=== PATIENT | male | born 1960 | race Caucasian/White ===

== ENCOUNTER 2016-09-16 13:06 | Emergency (ER) | payer BC ==
[~2016-09-16] VITALS: Ht 175.3 cm; Wt 99.8 kg
[~2016-09-16 13:06] MED LIST: ALPR1T PO; ALPR2TAB2 PO; FLUO20CA25 PO; NF-SYM625; OLAN1CAP9 PO; OLN5T PO; PRX20T PO
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
[2016-09-16 13:39] LABS: BASOPHILS % (AUTO) 0 % (0-10); EOSINOPHILS # (AUTO) 0.1 10^3/uL (0.0-0.3); EOSINOPHILS % (AUTO) 1 % (0-10); LYMPHOCYTES # (AUTO) 2.6 X 10^3 (1.0-4.0); LYMPHOCYTES % (AUTO) 17 % (12-44); MEAN CORPUSCULAR HEMOGLOBIN 31 PG (25-34); MEAN CORPUSCULAR HGB CONC 34 G/DL (32-36); MEAN CORPUSCULAR VOLUME 89 FL (80-99); MEAN PLATELET VOLUME 10.2 FL (7.4-10.4); MONOCYTES # (AUTO) 0.8 X 10^3 (0.0-1.0); MONOCYTES % (AUTO) 5 % (0-12); NEUTROPHILS % (AUTO) 77 % (42-75); PLATELET COUNT 409 10^3/uL (130-400); RED BLOOD COUNT 5.69 10^6/uL (4.35-5.85); RED CELL DISTRIBUTION WIDTH 13.6 % (10.0-14.5); WHITE BLOOD COUNT 15.6 10^3/uL (4.3-11.0)
[2016-09-16 13:56] LABS: BAND NEUTROPHILS 3 %; BASOPHILS % (MANUAL) 0 %; EOSINOPHILS % (MANUAL) 0 %; LYMPHOCYTES % (MANUAL) 15 %; NEUTROPHILS % (MANUAL) 76 %
[2016-09-16 13:57] LABS: ACETAMINOPHEN < 10 UG/ML (10-30); ALANINE AMINOTRANSFERASE 28 U/L (0-55); ALBUMIN 4.6 G/DL (3.2-4.5); ALCOHOL 34 MG/DL (<10); ANION GAP 12 MMOL/L (5-14); ASPARTATE AMINO TRANSFERASE 23 U/L (5-34); BILIRUBIN,TOTAL 0.3 MG/DL (0.1-1.0); BLOOD UREA NITROGEN 15 MG/DL (7-18); BUN/CREATININE RATIO 12; CALCIUM 9.6 MG/DL (8.5-10.1); CARBON DIOXIDE 22 MMOL/L (21-32); CHLORIDE 104 MMOL/L (98-107); CREATININE SERUM 1.22 MG/DL (0.60-1.30); GFR ESTIMATED > 60; GLUCOSE 118 MG/DL (70-105); POTASSIUM 3.3 MMOL/L (3.6-5.0); SODIUM 138 MMOL/L (135-145); TOTAL PROTEIN 7.7 G/DL (6.4-8.2)
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
[2016-09-16 16:04] LABS: BILIRUBIN,URINE NEGATIVE (NEGATIVE); KETONES,URINE 2+ (NEGATIVE); LEUKOCYTE ESTERASE ,URINE NEGATIVE (NEGATIVE); NITRITE,URINE NEGATIVE (NEGATIVE); PH,URINE 5 (5-9); PROTEIN,URINE 1+ (NEGATIVE); UROBILINOGEN,URINE NORMAL (NORMAL)
[2016-09-16 17:35] VITALS: BP 128/94
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
== END 2016-09-16 17:35 | disposition home or self-care (01) ==
LOC: EDUNIT# 13:06 → ER 13:09
DX: S39.92XA Unspecified injury of lower back, initial encounter (principal); S29.9XXA Unspecified injury of thorax, initial encounter; F33.9 Major depressive disorder, recurrent, unspecified; M47.812 Spondylosis without myelopathy or radiculopathy, cervical region; Z98.1 Arthrodesis status; Y35.893A Legal intervention involving other specified means, suspect injured, initial encounter; Y92.531 Health care provider office as the place of occurrence of the external cause; Y99.8 Other external cause status
CPT/HCPCS: 36415; 71010; 72125; 72128; 72131; 80053; 80306; 80320; 80329; 81000; 85007; 85025; 85027

== ENCOUNTER → 2016-10-10 | Outpatient (CLI) | payer BC ==
--- NOTE | 2016-10-10 17:33 | Diagnostic Imaging Report ---
PROCEDURE: MRI lumbar spine. TECHNIQUE: Multiplanar, multisequence MRI of the lumbar spine was performed without contrast. INDICATION: Back pain. FINDINGS: There is evidence of laminectomy around L5 level with posterior fusion hardware resulting in susceptibility artifact seen at L4 through S1 levels. Also suggestion of disc cage at L4/L5 and L5/S1 disc levels seen. The alignment of the posterior spinal line is satisfactory. There is disc desiccation at multiple levels. Reactive type II Modic changes around endplates in the mid lumbar spine seen. No suspicious focal marrow lesion is identified. The cauda equina and conus medullaris appear grossly unremarkable. T12/L1: There is diffuse disc bulge and bilateral mild facet hypertrophy. There is no central canal or lateral recess stenosis. No foraminal narrowing. L1/L2: There is mild disc herniation. There is no spinal canal or lateral recess stenosis. No foraminal narrowing. L2/L3: There is a diffuse disc bulge resulting in mild central canal stenosis reducing the AP dimension of the canal to 9.5 mm. There is moderate facet arthropathy. The lateral recess on the left demonstrates moderate to severe stenosis and there is mild lateral recess stenosis on the right side. There is bilateral foraminal stenosis moderate on the left and mild to moderate on the right side. L3/L4: There is a diffuse disc bulge with associated moderate central canal stenosis reducing the AP dimension of the canal to 7.7 mm. Bilateral moderate facet arthropathy is also seen with moderate to severe lateral recess stenosis, worse on the right side. There is bilateral foraminal stenosis of moderate to severe degree. L4/L5: Postoperative level demonstrates no remaining disc or spur with suggestion of prior discectomy and disc cage at this level. No obvious osseous bridging seen. This can be better evaluated with CT, however. The facet joints demonstrate also question of osseous bridging and fusion. There is no central canal or lateral recess stenosis. There is mild foraminal stenosis only seen on the left side. L5/S1: There is possible discectomy performed at this level with no remaining disc herniation or osteophyte. There is facet hypertrophy bilaterally. No central canal stenosis. There is mild bilateral lateral recess stenosis. The foramina demonstrate mild narrowing bilaterally. IMPRESSION: Postsurgical changes at L4 through S1 levels. There is central canal, lateral recess and neural foraminal stenosis at L3/L4 level. Other findings described above. Dictated by: Dictated on workstation # [id number]
--- NOTE | 2016-10-10 17:35 | Diagnostic Imaging Report ---
PROCEDURE: MR imaging cervical spine without contrast. TECHNIQUE: Multiplanar, multisequence MR imaging of the cervical spine was performed without contrast. INDICATION: Back pain. Neck pain. FINDINGS: There is straightening of the cervical spine curvature which might relate to muscle spasm. The alignment of the posterior spinal line is satisfactory. The vertebral body heights are preserved. There is no significant disc height loss. There is disc desiccation at all levels. There is no suspicious marrow lesion identified. Mild marrow edema probably reactive. Degenerative disc changes seen around the C6/7 disc and to a lesser extent around C5/6. The foramen magnum and upper cervical canal are widely patent. The spinal cord is normal in caliber, contour and signal. C2/3: No disc herniation, no spinal canal or foraminal stenosis. C3/4: No disc herniation. There is no spinal canal stenosis. There is mild uncovertebral and facet hypertrophy with bilateral mild foraminal stenosis. C4/5: There is a mild disc spur complex with no associated spinal canal stenosis. There is uncovertebral joint facet arthropathy resulting in bilateral severe foraminal stenosis. C5/6: There is a prominent disc spur complex without significant spinal canal stenosis. There is bilateral severe neural foraminal stenosis. C6-7: There is prominent disc spur complex with no significant spinal canal stenosis. There is mild foraminal stenosis on the left and no significant foraminal stenosis on the right side. IMPRESSION: Prominent mid cervical spine disc, uncovertebral and facet degenerative changes. There is no high-grade spinal canal stenosis at any level. There is bilateral severe foraminal stenosis at C4/5 and C5/6 levels. Dictated by: Dictated on workstation # [id number]
== END ==
LOC: RAD 14:56
PROVIDERS: ATTEND Orthopaedic Surgery Orthopaedic Surgery of the Spine
DX: M54.2 Cervicalgia (principal); M54.5 Low back pain
CPT/HCPCS: 72141; 72148

== ENCOUNTER → 2017-03-06 | Outpatient (CLI) | payer BC ==
--- NOTE | 2017-03-06 17:52 | Diagnostic Imaging Report ---
PROCEDURE: MRI left joint lower extremity without contrast. TECHNIQUE: Multiplanar, multisequence non contrast-enhanced MRI of the left lower extremity was accomplished. INDICATION: Chronic left knee pain. FINDINGS: There is a small suprapatellar effusion. The proximal patellar tendon demonstrates increased signal suggestive of a partial tear or tendinosis. There is thickening of the anterior tissues with intermediate signal on proton density and low signal on T2-weighted images probably related to hemorrhagic or fibrotic material within the superficial infrapatellar bursa mildly distending it. There is poor definition of the distal ACL fibers and thickening seen suggestive of an old injury. There is no bone marrow pattern of contusion to suggest an acute ACL tear. The PCL is intact. There is a complex tear involving the posterior horn and body of the medial meniscus. There is extrusion of the body of the medial meniscus. The lateral meniscus demonstrates no tear. The MCL is slightly buckled by the extruded medial meniscus with no tear. The lateral collateral ligament complex appear grossly unremarkable. Increased signal in the distal popliteus tendon may relate to old injury or tendinosis. The cartilage in the medial compartment demonstrates severe thinning and near complete loss. The patellofemoral compartment demonstrates also significant cartilage loss, more than 75% thinning, worse in the medial facet of the patella. The lateral compartment demonstrates relatively preserved cartilage. Tricompartment osteophyte formation is seen and subchondral degenerative related edema is also seen in the three compartments. There is a 2 x 2 x 2 cm T2 bright lesion with multiple septations likely related to a ganglion cyst abutting the supracondylar portion of the femur posteriorly. This is presumably related to a ganglion cyst. IMPRESSION: 1. There is a complex tear involving the posterior horn and the body of the medial meniscus. 2. Poor definition of the distal ACL fibers with thickening is suggestive of an old tear. 3. 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 4. A 2 cm T2 bright signal lesion with multiple septations abutting the posterior aspect of the femur in the supracondylar region, is likely related to a ganglion cyst. Dictated by: Dictated on workstation # [id number]
== END ==
LOC: RAD 14:43
PROVIDERS: ATTEND Orthopaedic Surgery
DX: S83.232A Complex tear of medial meniscus, current injury, left knee, initial encounter (principal); M17.12 Unilateral primary osteoarthritis, left knee; M85.9 Disorder of bone density and structure, unspecified; X58.XXXA Exposure to other specified factors, initial encounter; Y99.8 Other external cause status
CPT/HCPCS: 73721

== ENCOUNTER → 2017-09-20 | Outpatient (CLI) | payer BC ==
--- NOTE | 2017-09-20 12:28 | Diagnostic Imaging Report ---
PROCEDURE: MRI lumbar spine. TECHNIQUE: Multiplanar, multisequence MRI of the lumbar spine was performed without contrast. INDICATION: Bilateral leg numbness, low back pain. FINDINGS: The previous MRI lumbar spine exam performed on 10/10/2016 noted postsurgical changes consistent with a fusion of L4 through S1. There did appear to be central canal stenosis and lateral recess and neuroforaminal stenosis at the L3-L4 level. In the interval since the prior exam, the patient has undergone a surgical procedure. There is now evidence of a laminectomy at the L3-L4 level. The spinal stenosis seen on the prior exam has been corrected. The AP diameter of the thecal sac at the L3-L4 level now measures 14.5 mm as opposed to 9 mm on the prior exam. The neuroforaminal narrowing seen previously does not appear to have changed significantly. There is still no evidence for recurrent stenosis at L4-L5 or L5-S1. There is still mild neuroforaminal narrowing bilaterally at L5-S1, moderate neuroforaminal narrowing on the left at L4-L5, and mild neuroforaminal narrowing on the right at L4-L5. At the L2-L3 level, there is a disc bulge centrally. The AP diameter of the thecal sac is narrowed to 11.5 mm. There is mild narrowing of the neural foramen on the right at this level and moderate narrowing of the neural foramen on the left. At the L1-L2 level, there is a broad-based disc bulge which narrows the AP diameter of the thecal sac to 10.8 mm. There is mild narrowing of the neural foramina bilaterally at this level. There is no abnormal signal arising from the cord or the vertebral bodies to indicate an acute abnormality. There is no sign of a paraspinal mass. IMPRESSION: 1. In the interval since the prior exam, there has been laminectomy at the L3-L4 level. The spinal stenosis seen previously has been corrected. There is still narrowing of the neural foramina bilaterally at this level, however. 2. The postsurgical changes at L4-L5 and L5-S1 seen previously appear stable. There is no recurrent central stenosis at these levels. 3. The remainder of the lumbar spine is unchanged when compared to the prior study. No new area of spinal stenosis or nerve root encroachment has developed. 4. There is no sign of an acute bony abnormality or of a cord lesion. Dictated by: Dictated on workstation # [id number]
== END ==
LOC: RAD 10:01
PROVIDERS: ATTEND Physician Assistant
DX: M48.061 Spinal stenosis, lumbar region without neurogenic claudication (principal); Z98.1 Arthrodesis status
CPT/HCPCS: 72148

== ENCOUNTER 2018-02-01 09:15 | Outpatient (CLI) | payer BC ==
[~2018-02-01] VITALS: Ht 180.3 cm; Wt 107.5 kg
[~2018-02-01 09:15] MED LIST changes: +BACL10TA PO; +FLUO20CA42 PO; +LEVO75TA6 PO; +OMEP40CA36 PO
== END 2018-02-01 09:19 | disposition home or self-care (01) ==
LOC: PREOP 09:15
PROVIDERS: ATTEND Surgery
DX: Z01.818 Encounter for other preprocedural examination (principal)

== ENCOUNTER 2023-03-29 05:57 | Outpatient (CLI) | payer MEDICARE ==
[~2023-03-29] VITALS: Ht 180.4 cm; Wt 94.3 kg
[~2023-03-29 05:57] MED LIST changes: -OMEP40CA36 PO; +OMEP40CA6 PO
[2023-03-29] MEDS ORDERED: ATOR40TA70 PO (09:54)
[2023-03-29] MEDS ORDERED: LEVO50CA4 PO (09:54)
[2023-03-29] MEDS ORDERED: OLN5T PO (09:54)
[2023-03-29] MEDS ORDERED: PANT40TA52 PO (09:54)
== END 2023-03-29 09:56 | disposition home or self-care (01) ==
LOC: PREOP 05:57
PROVIDERS: ATTEND Surgery
DX: Z01.818 Encounter for other preprocedural examination (principal)

== ENCOUNTER 2023-04-19 10:24 | Day surgery (SDC) | payer MEDICARE ==
[~2023-04-19] VITALS: Ht 180.3 cm; Wt 94.3 kg
[~2023-04-19 10:24] MED LIST changes: +ATOR40TA70 PO; +LEVO50CA4 PO; +PANT40TA52 PO
[2023-04-19] MEDS ORDERED: LACTATED RINGERS 1,000 ML 1,000 ML IV STA (10:40)
[2023-04-19] MEDS ORDERED: LIDOCAINE JELLY 2% 6 ML SYRINGE MM PRN (10:45)
[2023-04-19] MEDS ORDERED: LACTATED RINGERS 1,000 ML 1,000 ML IV ONE (10:51)
--- NOTE | 2023-04-19 10:56 | Progress Note-Pre Operative ---
Pre-Operative Progress Note Date of Available H&P: Apr 19, 2023 Date H&P Reviewed: Apr 19, 2023 Time H&P Reviewed: 10:30 History & Physical: No changes noted Pre-Operative Diagnosis: screening colo DENA DOWNS MD Apr 19, 2023 10:56
--- NOTE | 2023-04-19 10:57 | Discharge Inst-Surgical ---
D/C Lap Instructions-YARELI Follow Up Activity as tolerated High Fiber Diet 25g or more per day Avoid Alcohol, Caffeine, Spicy [place] and Acid foods. Drink 64 fluid oz or more of fluids per day. Symptoms to Report: Fever over 101 degree F, Nausea/Vomiting If any problems/questions: Contact your physician or go to Emergency Room DENA DOWNS MD Apr 19, 2023 10:57
[2023-04-19] MEDS ORDERED: ONDANSETRON 4 MG ORAL DISSOLVE TABLET PO PRN (11:00)
[2023-04-19] MEDS ORDERED: ONDANSETRON INJECTION 4 MG/2 ML (SDV) IVP PRN (11:00)
[2023-04-19 11:29] VITALS: BP 114/74
[2023-04-19] MEDS ORDERED: LIDOCAINE JELLY 2% 6 ML SYRINGE ONE (11:44)
--- NOTE | 2023-04-19 12:48 | Anesthesia-General Post-Op ---
MAC Patient Condition Mental Status/LOC: Same as Preop Cardiovascular: Satisfactory Nausea/Vomiting: Absent Respiratory: Satisfactory Pain: Controlled Complications: Absent Post Op Complications Complications None Follow Up Care/Instructions Patient Instructions None needed. Anesthesiology Discharge Order Discharge Order Patient is doing well, no complaints, stable vital signs, no apparent adverse anesthesia problems. No complications reported per nursing. JIMMY THAYER CRNA Apr 19, 2023 12:48
[2023-04-19 12:50] VITALS: BP 99/65
[2023-04-19 12:55] VITALS: BP 114/76
--- NOTE | 2023-04-19 13:02 | Progress Note-Post Operative ---
Post-Operative Progess Note Surgeon (s)/Parimutuel Cashier (s) Surgeon DENA DOWNS MD Parimutuel Cashier: none Pre-Operative Diagnosis screening colo Post-Operative Diagnosis mild chronic stage 2 ext and int hemorrhoids, small polyp hepatic flex(2mm). Procedure & Operative Findings Date of Procedure 04/19/23 Procedure Performed/Findings colonoscopy with bx. Anesthesia Type mac Estimated Blood Loss Estimated blood loss (mL): minimal Specimens/Packing Specimens Removed hep flex polyp DENA DOWNS MD Apr 19, 2023 13:02
[2023-04-19 13:25] VITALS: BP 114/76
--- NOTE | 2023-04-19 21:32 | OPERATIVE REPORT ---
DATE OF SERVICE: 04/19/2023 ATTENDING PRIMARY CARE PHYSICIAN: Bambi De La Rosa DO PREOPERATIVE DIAGNOSIS: Screening colonoscopy with history of colon polyps. POSTOPERATIVE DIAGNOSES: Mild chronic stage II external and internal hemorrhoids, small polyp of the hepatic flexure approximately 2 mm in size. PROCEDURE: Colonoscopy with biopsy. SURGEON: Dena Red MD ANESTHESIA: Monitored anesthesia care. ESTIMATED BLOOD LOSS: Minimal. FINDINGS: Mild chronic stage II external and internal hemorrhoids, small polyp of the hepatic flexure approximately 2 mm in size. DISPOSITION: The patient tolerated the procedure well. INDICATIONS: The patient is a 62-year-old male referred over to us for screening colonoscopy. He reports that his last colonoscopy was 5 years ago and reports a polyp was identified, biopsied and found to be benign. He states that he is otherwise doing well, does not report any major issues with diarrhea, nor constipation as well as no red blood per rectum, nor any dark tarry stools. He also does not report any family history of colon cancer. DESCRIPTION OF PROCEDURE: The patient was brought to the endoscopy suite and laid in the left lateral decubitus position. After adequate IV pain and sedative medications and monitored anesthesia care, a digital rectal examination was performed. Chronic stage II external and internal hemorrhoids were identified, not actively edematous nor inflamed and no bleeding. Normal sphincter tone was felt and there were no palpable masses. Prostate gland was palpable and appeared normal. The endoscope was then intubated into the anus, rectum gently insufflated. The endoscope was then advanced through the valves of [place] of the rectum with no polyps or any neoplasms identified. Through the sigmoid colon, no diverticulosis identified. We then proceeded to the descending and transverse colon and approximately at the hepatic flexure, a small 2 mm polyp was identified, which was biopsied with forceps with visualization of good hemostasis. The endoscope was then advanced to the ascending colon to the cecum, which were normal. The endoscope was then slowly withdrawn while taking a second look and suctioning of residual air with no additional findings. The patient tolerated the procedure well. We will recommend continued medical management with a high-fiber diet with the addition of a fiber supplement, which should equal or exceed 30 grams daily as well as significant amounts of water to promote soft consistency stools on a daily basis. He does not have any first-degree family history of colon cancer; however, this is his second consecutive colonoscopy in 5 year intervals where a polyp was identified and he may also choose to proceed with followup colonoscopies every 5 years until no polyps identified, then he may go to 10 years. Job ID: [id number] DocumentID: [id number] Dictated Date: 04/19/2023 12:50:07 Electromechanical Equipment Tester Date: 04/19/2023 21:30:00 Dictated By: DENA RED MD
== END 2023-04-19 13:25 | disposition home or self-care (01) ==
LOC: ENDO 10:24
PROVIDERS: ATTEND Surgery
DX: Z12.11 Encounter for screening for malignant neoplasm of colon (principal); D12.3 Benign neoplasm of transverse colon; K64.4 Residual hemorrhoidal skin tags; K64.1 Second degree hemorrhoids; Z80.0 Family history of malignant neoplasm of digestive organs